=== PATIENT | female | born 1950 | race Caucasian/White ===

== ENCOUNTER 2019-09-01 11:28 | Inpatient (IN) | payer BC ==
[~2019-09-01] VITALS: Ht 162.6 cm; Wt 45.8 kg
[2019-09-01 11:40] VITALS: BP_SYST 124
[2019-09-01] MEDS ORDERED: THIAMINE HCL 100 MG in NS 50 ML IV ONE (12:00)
[2019-09-01] MEDS ORDERED: NACL 0.9% 1,000 ML IV ONE (12:00)
[2019-09-01 12:30] LABS: BASOPHILS # (AUTO) 0.1 K/uL (0.0-0.2); BASOPHILS % (AUTO) 0.9 % (0.0-2.0); EOSINOPHILS % (AUTO) 0.4 % (0.0-4.0); HEMATOCRIT 40.8 % (36-48); LYMPHOCYTES # (AUTO) 0.7 K/uL (1.0-5.5); MEAN CORPUSCULAR HEMOGLOBIN 39 pg (27-31); MEAN CORPUSCULAR HGB CONC 34 % (32-36); MEAN CORPUSCULAR VOLUME 112 fL (79.0-98.0); MONOCYTES # (AUTO) 0.9 K/uL (0.0-1.0); MONOCYTES % (AUTO) 9.7 % (1.7-9.3); NEUTROPHILS # (AUTO) 7.7 K/uL (1.8-7.7); PLATELET COUNT (AUTO) 232 K/uL (130-430); RED BLOOD CELL COUNT(AUTO) 3.63 MIL/uL (4.2-6.2); RED CELL DISTRIBUTION WIDTH 14.1 % (9.0-15.0); WHITE BLOOD COUNT (AUTO) 9.4 K/uL (4.8-10.8)
[2019-09-01] MEDS ORDERED: THIAMINE HCL 100 MG/ML VIAL ONE (12:41)
[2019-09-01 12:42] LABS: ANION GAP 12 (5-15); CALCIUM 9.4 mg/dL (8.4-11.0); CHLORIDE 97 mmol/L (98-107); CREATININE 0.84 mg/dL (0.55-1.30); GLUCOSE 80 mg/dL (70-99); POTASSIUM 4.3 mmol/L (3.5-5.1); SODIUM SERUM 134 mmol/L (136-145); UREA NITROGEN, BLOOD 6 mg/dL (8-21)
[2019-09-01 12:45] LABS: PROTHROMBIN TIME 10.4 SECS (9.5-12.5)
[2019-09-01 12:50] LABS: GFR AFRICAN AMERICAN 86 mL/min (>90)
[2019-09-01 12:57] LABS: ALANINE AMINOTRANSFERASE 37 U/L (12-78); ALBUMIN 3.8 g/dL (3.4-4.8); ALCOHOL, BLOOD < 3 mg/dL (<10); ASPARTATE AMINOTRANSFERASE 121 U/L (10-37)
[2019-09-01] MEDS ORDERED: ACETAMINOPHEN 325 MG TABLET PO ONE (13:00)
[2019-09-01 15:36] LABS: BLOOD, URINE NEGATIVE (NEGATIVE); GLUCOSE,URINE NEGATIVE (NEGATIVE); KETONES,URINE 1+ (NEGATIVE); LEUKOCYTE ESTERASE ,URINE 1+ (NEGATIVE); NITRITE, URINE NEGATIVE (NEGATIVE); PROTEIN URINE 2+ (NEGATIVE)
[2019-09-01 15:50] LABS: BARBITURATE, URINE NEGATIVE (NEG <=200); BENZODIAZEPINE, URINE NEGATIVE (NEG <=150); CANNABINOID, URINE NEGATIVE (NEG <=50); COCAINE, URINE NEGATIVE (NEG <=150); METHAMPHETAMINES SCREEN,URINE NEGATIVE (NEG <=500); OPIATE, URINE NEGATIVE (NEG <=100); PHENCYCLIDINE SCREEN,URINE NEGATIVE (NEG <=25); UR TRICYCLIC ANTIDEPRESSANTS NEGATIVE (NEG <=300); URINE AMPHETAMINE NEGATIVE (NEG <=500); URINE METHADONE NEGATIVE (NEG <=200); URINE OXYCODONE SCREEN NEGATIVE (NEG <=100); URINE PROPOXYPHENE SCREEN NEGATIVE (NEG <=300)
[2019-09-01 15:57] LABS: BILIRUBIN,URINE NEGATIVE (NEGATIVE); CLARITY/URINE HAZY (CLEAR); COLOR,URINE AMBER (YELLOW)
[2019-09-01 15:59] LABS: BACTERIA,URINE FEW /HPF (None Seen); FINE GRANULAR CASTS,URINE 0-10 /LPF (None Seen); MUCUS,URINE None Seen /LPF (None Seen); RBC,URINE 0-3 /HPF (0-3)
[2019-09-01] MEDS ORDERED: cefTRIAXone 1 GM in D5W 50 ML IV ONE (16:30)
[2019-09-01] MEDS ORDERED: cefTRIAXone 1 GM VIAL ONE (17:37)
[2019-09-01 17:53] VITALS: BP_SYST 132
[2019-09-01 18:20] VITALS: BP_SYST 132
[2019-09-02] VITALS (8 sets, daily range): BP systolic 99–128
[2019-09-02] MEDS ORDERED: ONDANSETRON HCL 4 MG/2 ML VIAL IVP PRN (02:15)
[2019-09-02] MEDS ORDERED: ALBUTEROL SULFATE 0.083% 2.5 MG/3 ML VIAL.NEB INH PRN (02:15)
[2019-09-02] MEDS ORDERED: HYDROmorphone 2 MG/ML VIAL IVP PRN (02:15)
[2019-09-02] MEDS: ACETAMINOPHEN 325 MG TABLET PO PRN (06:03)
[2019-09-02] MEDS ORDERED: SULF500T8 PO (08:40)
[2019-09-02] MEDS ORDERED: VERA180C2 PO (08:40)
[2019-09-02] MEDS: VERAPAMIL HCL 180 MG TABLET.SA PO SCH ×2 (09:38→21:00)
[2019-09-02] MEDS: sulfASALAZINE 500 MG TABLET (AZULFIDINE) PO SCH ×2 (09:38→21:00)
[2019-09-02 10:40] LABS: CALCIUM 8.5 mg/dL (8.4-11.0); CREATININE 0.82 mg/dL (0.55-1.30); POTASSIUM 3.3 mmol/L (3.5-5.1); TOTAL BILIRUBIN 0.7 mg/dL (0.0-1.0)
[2019-09-02 12:30] LABS: EOSINOPHILS % (AUTO) 0.6 % (0.0-4.0); HEMOGLOBIN 12.5 g/dL (12.0-16.0); LYMPHOCYTES # (AUTO) 0.9 K/uL (1.0-5.5)
[2019-09-02 12:32] LABS: BASOPHILS % (AUTO) 0.9 % (0.0-2.0); HEMATOCRIT 36.4 % (36-48); LYMPHOCYTES % (AUTO) 18.6 % (20.5-51.5); MEAN CORPUSCULAR HEMOGLOBIN 39 pg (27-31); MEAN CORPUSCULAR HGB CONC 34 % (32-36); MEAN CORPUSCULAR VOLUME 112 fL (79.0-98.0); MONOCYTES # (AUTO) 0.8 K/uL (0.0-1.0); MONOCYTES % (AUTO) 17.4 % (1.7-9.3); NEUTROPHILS % (AUTO) 62.5 % (40.0-70.0); PLATELET COUNT (AUTO) 162 K/uL (130-430); RED BLOOD CELL COUNT(AUTO) 3.24 MIL/uL (4.2-6.2); RED CELL DISTRIBUTION WIDTH 13.6 % (9.0-15.0); WHITE BLOOD COUNT (AUTO) 4.9 K/uL (4.8-10.8)
[2019-09-02] MEDS: cefTRIAXone 1 GM IVPB PREMIX 50 ML IV SCH (20:00)
[2019-09-03] VITALS (7 sets, daily range): BP systolic 94–133
[2019-09-03 07:44] LABS: HEMATOCRIT 35.8 % (36-48); HEMOGLOBIN 12.2 g/dL (12.0-16.0); MEAN CORPUSCULAR HEMOGLOBIN 39 pg (27-31); MEAN CORPUSCULAR HGB CONC 34 % (32-36); MEAN CORPUSCULAR VOLUME 113 fL (79.0-98.0); PLATELET COUNT (AUTO) 157 K/uL (130-430); RED BLOOD CELL COUNT(AUTO) 3.17 MIL/uL (4.2-6.2); RED CELL DISTRIBUTION WIDTH 13.7 % (9.0-15.0); WHITE BLOOD COUNT (AUTO) 4.9 K/uL (4.8-10.8)
[2019-09-03 08:04] LABS: ALBUMIN 2.9 g/dL (3.4-4.8); CREATININE 0.56 mg/dL (0.55-1.30); POTASSIUM 3.1 mmol/L (3.5-5.1); TOTAL BILIRUBIN 0.7 mg/dL (0.0-1.0)
[2019-09-03 08:20] LABS: CALCIUM 8.6 mg/dL (8.4-11.0)
[2019-09-03] MEDS: sulfASALAZINE 500 MG TABLET (AZULFIDINE) PO SCH ×2 (08:46→19:57)
[2019-09-03] MEDS: VERAPAMIL HCL 180 MG TABLET.SA PO SCH ×2 (08:46→19:57)
[2019-09-03 09:02] LABS: BASOPHILS % (MANUAL) 0 % (0-2); EOSINOPHILS % (MANUAL) 2 % (0-7); LYMPHOCYTES % (MANUAL) 27 % (20-46); MONOCYTES % (MANUAL) 15 % (0-11)
[2019-09-03] MEDS: POTASSIUM CHLORIDE 20 MEQ TAB.PRT.SR PO SCH ×2 (12:04→15:55)
[2019-09-03] MEDS: cefTRIAXone 1 GM IVPB PREMIX 50 ML IV SCH (17:30)
[2019-09-03 17:36] LABS: POTASSIUM 4.1 mmol/L (3.5-5.1)
[2019-09-04 01:38] VITALS: BP_SYST 94
[2019-09-04] MEDS: ACETAMINOPHEN 325 MG TABLET PO PRN (06:47)
[2019-09-04 07:34] VITALS: BP_SYST 107
[2019-09-04] MEDS: VERAPAMIL HCL 180 MG TABLET.SA PO SCH (08:27)
[2019-09-04] MEDS: sulfASALAZINE 500 MG TABLET (AZULFIDINE) PO SCH (08:27)
[2019-09-04 12:31] VITALS: BP_SYST 105
[2019-09-04 14:35] VITALS: BP_SYST 105
[2019-09-04] MEDS ORDERED: LEVO750T19 PO (14:40)
== END 2019-09-04 15:21 | disposition home or self-care (01) | DRG 689 ==
LOC: SED 11:28 → SMU 17:15 → STU 09-02 09:00 → SMU 09-04 10:25
PROVIDERS: ADMIT Internal Medicine Hospice and Palliative Medicine; ATTEND Internal Medicine Hospice and Palliative Medicine
DX: N39.0 Urinary tract infection, site not specified (principal); G93.41 Metabolic encephalopathy; E87.1 Hypo-osmolality and hyponatremia; I48.0 Paroxysmal atrial fibrillation; G89.29 Other chronic pain; F10.10 Alcohol abuse, uncomplicated; Z66 Do not resuscitate; Z51.5 Encounter for palliative care; Z88.8 Allergy status to other drugs, medicaments and biological substances; M45.9 Ankylosing spondylitis of unspecified sites in spine
CPT/HCPCS: 36415; 70450-TC; 71045; 80053; 80307; 81000-TC; 83735-TC; 84132-TC; 84443-TC; 84484; 85007; 85025; 85027; 85610-TC; 85730-TC; 87040-TC; 87086; 87186-TC; 93005; 93880; 96365; 99285; G0378; G0482; J0696; J3411; J7030

== ENCOUNTER 2020-03-25 13:44 | Inpatient (IN) | payer BC ==
[~2020-03-25] VITALS: Ht 149.9 cm; Wt 41.3 kg
[2020-03-25 13:44] VITALS: BP_SYST 143
[~2020-03-25 13:44] MED LIST: LEVO750T19 PO; SULF500T8 PO; VERA180C2 PO
--- NOTE | 2020-03-25 13:44 | NUR ---
Placed in room 5. Placed on monitor technician, blood pressure machine and pulse oximeter. To gown for exam. Side rails up. Report given to FLAKO Turner.
--- NOTE | 2020-03-25 13:44 | NUR ---
BETITO Reyes at bedside examining patient.
--- NOTE | 2020-03-25 13:45 | NUR ---
Rectal temp 85.3, bear hugger in place, warming techniques applied.
--- NOTE | 2020-03-25 13:45 | NUR ---
Pt BIB ambulance, found down at home. Per son, history of ETOH. Currently un-responsive. V/S stable. Rectal temp 85.3. Will continue to monitor.
--- NOTE | 2020-03-25 13:50 | NUR ---
# 20 gauge angiocath placed to RAC. Use of asceptic technique. Opsite placed over site. Blood return noted. Blood for lab drawn from site. Flushed with 10 cc of normal saline. No evidence of infiltration noted. Patient tolerated well.
--- NOTE | 2020-03-25 13:55 | NUR ---
Urine obtained via straight cath as per MD order. Pt tolerated well. Urine sent to lab
--- NOTE | 2020-03-25 13:58 | NUR ---
Blood cultures x2 collected, one set @ 1358, second set @ 1408. Sent to lab
--- NOTE | 2020-03-25 13:58 | NUR ---
EKG performed at bedside by EMT, given to MD for interpretation.
[2020-03-25] MEDS ORDERED: NACL 0.9% 1,000 ML IV ONE ×2 (14:00→19:00)
--- NOTE | 2020-03-25 14:05 | NUR ---
Radiology at bedside performing CXR
--- NOTE | 2020-03-25 14:10 | NUR ---
Patient transported to radiology via gurney for CT scan, accompanied by staff.
--- NOTE | 2020-03-25 14:15 | NUR ---
1L NS bolus infusing as ordered.
[2020-03-25 14:16] LABS: BASOPHILS % (AUTO) 0.7 % (0.0-2.0); EOSINOPHILS % (AUTO) 0.2 % (0.0-4.0); HEMATOCRIT 39.8 % (36-48); HEMOGLOBIN 13.2 g/dL (12.0-16.0); LYMPHOCYTES # (AUTO) 0.4 K/uL (1.0-5.5); LYMPHOCYTES % (AUTO) 15.1 % (20.5-51.5); MEAN CORPUSCULAR HEMOGLOBIN 36 pg (27-31); MEAN CORPUSCULAR HGB CONC 33 % (32-36); MEAN CORPUSCULAR VOLUME 109 fL (79.0-98.0); MONOCYTES # (AUTO) 0.2 K/uL (0.0-1.0); MONOCYTES % (AUTO) 8.5 % (1.7-9.3); NEUTROPHILS # (AUTO) 1.9 K/uL (1.8-7.7); NEUTROPHILS % (AUTO) 75.5 % (40.0-70.0); PLATELET COUNT (AUTO) 224 K/uL (130-430); RED BLOOD CELL COUNT(AUTO) 3.66 MIL/uL (4.2-6.2); RED CELL DISTRIBUTION WIDTH 13.3 % (9.0-15.0); WHITE BLOOD COUNT (AUTO) 2.5 K/uL (4.8-10.8)
--- NOTE | 2020-03-25 14:25 | NUR ---
Folvite given IVP and Thiamine infusing IVPB as ordered by .
[2020-03-25] MEDS ORDERED: THIAMINE HCL 100 MG in NS 50 ML IV ONE (14:30)
[2020-03-25] MEDS ORDERED: FOLIC ACID 5 MG/ML VIAL IV ONE (14:30)
[2020-03-25 14:31] LABS: PROTHROMBIN TIME 10.1 SECS (9.5-12.5)
[2020-03-25 14:36] LABS: BARBITURATE, URINE NEGATIVE (NEG <=200); BENZODIAZEPINE, URINE NEGATIVE (NEG <=150); CANNABINOID, URINE NEGATIVE (NEG <=50); COCAINE, URINE NEGATIVE (NEG <=150); METHAMPHETAMINES SCREEN,URINE NEGATIVE (NEG <=500); OPIATE, URINE NEGATIVE (NEG <=100); PHENCYCLIDINE SCREEN,URINE NEGATIVE (NEG <=25); UR TRICYCLIC ANTIDEPRESSANTS NEGATIVE (NEG <=300); URINE AMPHETAMINE NEGATIVE (NEG <=500); URINE METHADONE NEGATIVE (NEG <=200); URINE OXYCODONE SCREEN NEGATIVE (NEG <=100); URINE PROPOXYPHENE SCREEN NEGATIVE (NEG <=300)
[2020-03-25 14:38] LABS: BILIRUBIN,URINE 2+ (NEGATIVE); BLOOD, URINE 1+ (NEGATIVE); COLOR,URINE ORANGE (YELLOW); GLUCOSE,URINE NEGATIVE (NEGATIVE); KETONES,URINE 3+ (NEGATIVE); LEUKOCYTE ESTERASE ,URINE TRACE (NEGATIVE); NITRITE, URINE POSITIVE (NEGATIVE); PROTEIN URINE 1+ (NEGATIVE)
[2020-03-25 14:40] LABS: ANION GAP 16 (5-15); CALCIUM 8.9 mg/dL (8.4-11.0); CHLORIDE 97 mmol/L (98-107); CREATININE 0.86 mg/dL (0.55-1.30); GLUCOSE 130 mg/dL (70-99); POTASSIUM 3.1 mmol/L (3.5-5.1); SODIUM SERUM 138 mmol/L (136-145); UREA NITROGEN, BLOOD 40 mg/dL (8-21)
[2020-03-25 14:43] LABS: GFR AFRICAN AMERICAN 84 mL/min (>90)
[2020-03-25 14:46] LABS: CLARITY/URINE HAZY (CLEAR)
[2020-03-25] MEDS ORDERED: THIAMINE HCL 100 MG/ML VIAL ONE (14:49)
[2020-03-25 14:51] LABS: BACTERIA,URINE FEW /HPF (None Seen); MUCUS,URINE 1+ /LPF (None Seen)
[2020-03-25 14:52] LABS: ACETAMINOPHEN < 1 ug/mL (1-30); ALANINE AMINOTRANSFERASE 60 U/L (12-78); ALBUMIN 3.2 g/dL (3.4-4.8); ALCOHOL, BLOOD < 3 mg/dL (<10); ASPARTATE AMINOTRANSFERASE 106 U/L (10-37); LIPASE 337 U/L (73-393)
--- NOTE | 2020-03-25 14:59 | NUR ---
Re-check rectal temp, 85.0. Dr. Narayan notified, NS bolus paused. Warm blankets placed on patient.
--- NOTE | 2020-03-25 15:09 | NUR ---
Spoke with Pt's son, Kelvin Main to notify him of admission.
[2020-03-25] MEDS ORDERED: VANCOMYCIN HCL 1,000 MG in NS 250 ML IV ONE (15:15)
[2020-03-25] MEDS ORDERED: PIPERACILLIN/TAZO 3.375 GM in NS 50 ML IV ONE (15:15)
[2020-03-25 15:16] LABS: CKMB RELATIVE INDEX 2.4 (0.0-2.9); CREATINE KINASE MB 8.4 ng/mL (0-3.6)
--- NOTE | 2020-03-25 15:16 | NUR ---
Analisa infusing IVPB as ordered
[2020-03-25] MEDS ORDERED: PIPERACILLIN/TAZOBACTAM 3.375 GM/VIAL (ZOSYN) IV ONE ×2 (15:29→22:24)
[2020-03-25] MEDS ORDERED: VANCOMYCIN HCL 1000 MG/VIAL IV ONE (15:43)
--- NOTE | 2020-03-25 16:00 | NUR ---
Vancomyacin infusing IVPB as ordered by
[2020-03-25] MEDS ORDERED: RIZA10TA21 PO (16:02)
[2020-03-25] MEDS ORDERED: VITD2000 PO (16:02)
--- NOTE | 2020-03-25 16:02 | NUR ---
Medication reconciliation completed with information provided by Kelvin demarco over the phone. Any prior medication reconciliation on file was reviewed and corrected.
--- NOTE | 2020-03-25 16:40 | NUR ---
Patient moved to ER bed 3.
--- NOTE | 2020-03-25 17:24 | NUR ---
Re-check rectal temp, 92.9. aware
[2020-03-25] MEDS ORDERED: NS 500 ML IV ONE (17:45)
--- NOTE | 2020-03-25 17:47 | NUR ---
Pt will be admitted under the care of Dr. Mccormack. Called for a tele bed. Gaboly waiting for a bed assignement
--- NOTE | 2020-03-25 18:01 | NUR ---
Patient will be admitted to care of Dr. Mccormack. Admitted to tele unit. Will go to room 105-A. Belongings list completed. Complete and up to date summary report printed. SBAR report to be given at bedside with opportunity for questions. IV is on the lac 20g, patent and infusing well. Bedside report to be given.
--- NOTE | 2020-03-25 18:13 | NUR ---
Tirso w/ Sarah LLANOS, to provide bear hugger to Tele
--- NOTE | 2020-03-25 18:20 | NUR ---
ADMISSION NOTE Received patient from ER via shweta, received report from ISSA ARRIOLA. Patient admitted with diagnosis of SEPSIS. Patient oriented to hospital routine, call light, toileting and safety-patient verbalized understanding.
[2020-03-25 18:31] VITALS: BP_SYST 108
--- NOTE | 2020-03-25 18:43 | NUR ---
RN NOTE patient resting in bed, patient was able to state her first name to me, when asked about her last name and , she kept saying "rewind" and would laugh, that would be her response for every question I gave her, tolerating well on room air, has the bear hugger on her, no other needs addressed at this time, will endorse care to shift supervisor film processing nurse, fall/safety, aspiration, and seizure precautions in place. Addendum: 03/25/20 at 1859 by Elle Parker RN orders received for IVF bolus and scheduled.
[2020-03-25] MEDS ORDERED: NACL 0.9% 1,000 ML IV SCH (19:00)
[2020-03-25 19:45] VITALS: BP_SYST 112
--- NOTE | 2020-03-25 19:45 | NUR ---
Opening notes Pt awake, confused, but follows simple commands. Pt on Paula hugger temp 96.2 temporal, O2 98% on room air. IVF schedule administered at ordered rate R. FA 20G no s/s infiltration. Oriented to call light use/surrounding. Safety/seizure precaution in place. Bed low, locked, siderails up x3, alarm on. Call light within reach. To monitor.
[2020-03-25] MEDS: NACL 0.9% 1,000 ML IV SCH (20:51)
[2020-03-25] MEDS ORDERED: ACETAMINOPHEN 325 MG TABLET PO PRN (21:00)
[2020-03-25] MEDS ORDERED: ALBUTEROL SULFATE 0.083% 2.5 MG/3 ML VIAL.NEB INH PRN (21:00)
[2020-03-25] MEDS: PIPERACILLIN/TAZO 3.375/DEX-IS 50 ML IV SCH ×2 (21:00→23:09)
[2020-03-25] MEDS ORDERED: FOLIC ACID 1 MG, THIAMINE HCL 100 MG, MAGNESIUM SULFATE 1 GM, MVI 10 ML in NACL 0.9% 1,... IV SCH (21:15)
[2020-03-25] MEDS ORDERED: POTASSIUM CHLORIDE 20 MEQ TAB.PRT.SR PO ONE (21:15)
--- NOTE | 2020-03-25 22:25 | NUR ---
Family called Received call from pt son Kelvin.
--- NOTE | 2020-03-25 23:00 | NUR ---
Med pass Pt awake, confused. When asked what's your name and , pt replied "Autumn" "6th" repeatedly. Potassium pill administered crushed w/ applesauce, pt tolerated well, no coughing noted. IV antibiotic Zosyn given at ordered rate. Jeffery SCDs placed per MD order. Call light remains within reach. Safety precaution in place. To monitor.
[2020-03-26 00:58] VITALS: BP_SYST 110
--- NOTE | 2020-03-26 01:02 | NUR ---
Pharmacy called Called outside Pharmacy [phone] to reschedule Banana bag for 0900, no answer, left a message.
--- NOTE | 2020-03-26 01:15 | NUR ---
ROUNDS: Patient is awake at this time. Breathing is even and unlabored. No new needs at this time. Patient is comfortable at this time. Bed locked in lowest position, bed alarm on, call light with patient. Will continue to monitor. Addendum: 03/27/20 at 0350 by Regina oRper RN correct date for this entry is 03/27/20 @0115
--- NOTE | 2020-03-26 02:33 | NUR ---
Rounds Pt asleep, respirations even and unlabored. Call light within reach. Safety measures maintained. Bed low, locked, siderails up x3, alarm on. To monitor.
--- NOTE | 2020-03-26 04:30 | NUR ---
Pericare Pt incontinent of small soft stool. Pericare/skin care provided. Pt repositioned. To monitor.
[2020-03-26 04:40] VITALS: BP_SYST 108
[2020-03-26] MEDS: NACL 0.9% 1,000 ML IV SCH (05:10)
[2020-03-26] MEDS: PIPERACILLIN/TAZO 3.375/DEX-IS 50 ML IV SCH ×2 (05:17→11:13)
--- NOTE | 2020-03-26 06:05 | NUR ---
Closing notes Pt asleep, easily awakens. No s/s distress. Pt on Paula hugger. IVF infusing at ordered rate R. FA 20G no s/s infiltration. Pt has not voided. Bladder scanned done 581. Pt denies discomfort. Will page . Jeffery SCDs in place. Pt repositioned. Neurochecks done. Bed low, locked, siderails up x3, alarm on. To endorse to AM nurse.
[2020-03-26 06:18] LABS: LYMPHOCYTES # (AUTO) 0.4 K/uL (1.0-5.5); MEAN CORPUSCULAR HEMOGLOBIN 37 pg (27-31); MONOCYTES # (AUTO) 0.5 K/uL (0.0-1.0); NEUTROPHILS # (AUTO) 2.6 K/uL (1.8-7.7)
[2020-03-26 06:25] LABS: BASOPHILS % (AUTO) 0.1 % (0.0-2.0); EOSINOPHILS % (AUTO) 0.2 % (0.0-4.0); HEMATOCRIT 29.1 % (36-48); LYMPHOCYTES % (AUTO) 10.2 % (20.5-51.5); MEAN CORPUSCULAR HGB CONC 35 % (32-36); MEAN CORPUSCULAR VOLUME 108 fL (79.0-98.0); MONOCYTES % (AUTO) 14.4 % (1.7-9.3); NEUTROPHILS % (AUTO) 75.1 % (40.0-70.0); PLATELET COUNT (AUTO) 206 K/uL (130-430); RED BLOOD CELL COUNT(AUTO) 2.69 MIL/uL (4.2-6.2); RED CELL DISTRIBUTION WIDTH 13.3 % (9.0-15.0); WHITE BLOOD COUNT (AUTO) 3.5 K/uL (4.8-10.8)
[2020-03-26 06:40] LABS: CALCIUM 7.3 mg/dL (8.4-11.0); POTASSIUM 2.9 mmol/L (3.5-5.1)
[2020-03-26 06:41] LABS: CREATININE 0.87 mg/dL (0.55-1.30); TOTAL BILIRUBIN 0.8 mg/dL (0.0-1.0)
[2020-03-26 06:42] LABS: ALBUMIN 2.3 g/dL (3.4-4.8)
--- NOTE | 2020-03-26 06:50 | NUR ---
Paged Paged and spoke w/ Dr. Mccormack re K+2.9. Order for K-dur 40 x 1 received and informed MD pt is retaining urine Bladder scan done 581ml. Per MD insert sotelo catheter. Will enter orders.
[2020-03-26] MEDS ORDERED: POTASSIUM CHLORIDE 20 MEQ TAB.PRT.SR PO ONE (07:00)
--- NOTE | 2020-03-26 07:13 | NUR ---
Nutrition Update Kunal Scale 15 noted. Pt admitted for Sepsis Diet: Cardiac BMI: 18.4 kg/m2 RD to follow per nutrition care standards.
[2020-03-26] MEDS ORDERED: D5NS 1,000 ML IV SCH (07:15)
[2020-03-26] MEDS ORDERED: D5W 1,000 ML IV PRN (07:18)
--- NOTE | 2020-03-26 07:21 | NUR ---
CONSULTATION PAGED/CALLED Reason for Consultation: SEPSIS Person Who was Notified: BRADEN Consulting Physician: Food Safety Manager Specialty: Ordering Physician:
[2020-03-26] MEDS ORDERED: GLUCOSE 15 GM GEL (in 37.5 GM TUBE) PO PRN (07:30)
[2020-03-26] MEDS: D5NS 1,000 ML IV SCH ×2 (07:30→17:30)
[2020-03-26] MEDS ORDERED: KCL 40 mEq in 100 mL (PREMIX) 100 ML IV ONE (07:30)
[2020-03-26] MEDS ORDERED: DEXTROSE 50% JECT 50 ML DISP.SYRIN IVP PRN (07:30)
--- NOTE | 2020-03-26 07:30 | NUR ---
opening note patient resting in bed, fingerstick blood sugar check was 58, Dr Milner was at the nurses' and I told her about the results, she put in new orders, new orders for hypoglycemic protocol, educated patient on medication use and side effects, patient is nonverbal at this time, opens eyes spontaneously and smiles then continues to closing her eyes, tolerated well, tolerating well on room air, reji hugger still on, IVF running and tolerating well, no other needs addressed at this time, bed in lowest position, bed alarm on, side rails up, call light within reach, seizure pads on, patient is pending a swallow evaluation, fall/safety and aspiration precautions in place.
[2020-03-26] MEDS: FOLIC ACID 1 MG, MVI 10 ML in NACL 0.9% 1,000 ML IV SCH (07:47)
[2020-03-26] MEDS: THIAMINE HCL 100 MG, MAGNESIUM SULFATE 1 GM in NS 100 ML IV SCH (07:48)
[2020-03-26 08:00] VITALS: BP_SYST 104
[2020-03-26] MEDS ORDERED: POTASSIUM CHLORIDE 40 MEQ in NS 250 ML IV ONE (08:00)
[2020-03-26] MEDS: sulfASALAZINE 500 MG TABLET (AZULFIDINE) PO SCH ×2 (08:08→21:44)
--- NOTE | 2020-03-26 09:00 | NUR ---
MILLS CATH: # 16 FR Mills catheter with 10 cc bulb inserted with use of sterile technique. Bulb inflated with 10 cc sterile water. Immediate return of 200 cc urine noted. Bedside drainage bag placed below level of bladder. Urine sample collected and sent to lab at 0908. Pt tolerated procedure well.
--- NOTE | 2020-03-26 09:11 | NUR ---
left message for Ofelia regarding swallow evaluation. [phone]
[2020-03-26 09:27] LABS: BILIRUBIN,URINE 2+ (NEGATIVE); CLARITY/URINE CLEAR (CLEAR); COLOR,URINE YELLOW (YELLOW); GLUCOSE,URINE NEGATIVE (NEGATIVE); KETONES,URINE 2+ (NEGATIVE); LEUKOCYTE ESTERASE ,URINE NEGATIVE (NEGATIVE); NITRITE, URINE NEGATIVE (NEGATIVE); PROTEIN URINE TRACE (NEGATIVE)
[2020-03-26 09:28] LABS: BLOOD, URINE TRACE (NEGATIVE)
[2020-03-26 09:33] LABS: BACTERIA,URINE FEW /HPF (None Seen); HYALINE CASTS, URINE 0-10 /LPF (None Seen); WBC,URINE 0-3 /HPF (0-3)
--- NOTE | 2020-03-26 10:13 | NUR ---
patient resting in bed eyes closed breathing easy and nonlabored, tolerating well on room air, banana bag running and patient tolerating well, no needs addressed at this time, fall/safety, seizure, and aspiration precautions in place.
[2020-03-26] MEDS ORDERED: MAGNESIUM SULFATE 50 ML IV ONE (11:00)
--- NOTE | 2020-03-26 11:27 | NUR ---
CONSULTATION PAGED/CALLED Reason for Consultation: PATIENT FOUND ON THE legal practice manager Who was Notified: RAUL Consulting Physician: Rodbuster Specialty: Ordering Physician:
--- NOTE | 2020-03-26 11:31 | NUR ---
CONSULTATION PAGED/CALLED Reason for Consultation: PATIENT FOUND ON THE carriage operator Who was Notified: DAE Consulting Physician: Mixing Machine Feeder Specialty: Ordering Physician:
--- NOTE | 2020-03-26 11:43 | NUR ---
SS NOTES/ATTEMPT: SPANISH PROFESSOR attempted to meet with patient for ETOH. Pt appears to be confused with flat affect. Pt is also not responding to questions and nods to everything asked. SPANISH PROFESSOR will attempt again.
--- NOTE | 2020-03-26 12:10 | NUR ---
rounds patient is resting in bed, finished getting her 2D echo, patient has IV medications running and is tolerating well, no signs of distress at this time, tolerating well on room air, no needs addressed at this time, fall/safety, seizure, and aspiration precautions in place.
[2020-03-26 12:21] VITALS: BP_SYST 110
--- NOTE | 2020-03-26 12:41 | NUR ---
Dietitian Recommendations *Awaiting ST eval for diet modification. *Recommend: adding ONS once diet is ordered to better meet nutrient needs. Please see Nutritional Assessment for details. RAS, ALINA
--- NOTE | 2020-03-26 14:55 | NUR ---
blood sugar check done per order, patient tolerated well, blood sugar was 80, no other needs at this time, banana bag running, fall/safety, aspiration, and seizure precautions in place.
[2020-03-26] MEDS ORDERED: VANCOMYCIN HCL 500 MG in NS 100 ML IV SCH (16:00)
[2020-03-26 16:10] VITALS: BP_SYST 113
--- NOTE | 2020-03-26 16:36 | NUR ---
swallow evaluation ST in room for evaluation.
--- NOTE | 2020-03-26 16:53 | NUR ---
S.T. SWALLOW EVAL SWALLOW EVAL COMPLETED. PT PRESENTS W/ MOD ORAL AND ML PHARYNGEAL DYSPHAGIA W/ DELAYED BOLUS TRANSFER, PROLONGED MASTICATION, AND DELAYED SWALLOW. NO S/S OF ASPIRATION. REC: MECH SOFT FINELY CHOPPED DIET. THIN LIQUIDS OK. NURSE RYAN NOTIFIED.
--- NOTE | 2020-03-26 18:36 | NUR ---
closing note patient resting in bed, fingerstick blood sugar check was 105, tolerating well on room air, reji hugger still on, IVF running and tolerating well, no other needs addressed at this time, bed in lowest position, bed alarm on, side rails up, call light within reach, seizure pads on, patient passed swallow evaluation, fall/safety and aspiration precautions in place. sotelo catheter in place, will endorse care to shift superintendent caustic cresylate nurse. Addendum: 03/26/20 at 1837 by Elle Parker RN no longer on reji graves
--- NOTE | 2020-03-26 19:15 | NUR ---
OPENING NOTE: Patient awake at this time, AOx2. No s/s of acute distress noted. Breathing is even and unlabored. IVF well without signs of infection or infiltration. Sparks catheter patent, attached, and draining by gravity. SCDs are attached and operating. Seizure pads attached. Bed locked in lowest position, bed alarm on, call light with patient. Patient educated on use and importance of call light. Patient unable to verbalize understanding and demonstrate proper use due to confusion. Will continue to re-educate and re-orient throughout the shift. Will continue to monitor.
[2020-03-26 20:00] VITALS: BP_SYST 119
--- NOTE | 2020-03-26 21:00 | NUR ---
SPOKE WITH DR. HESTER: Patient had an episode of tachycardia sustaining the 120's for 10 minutes. Patient without s/s of acute distress noted. Breathing even and unlabored. MD Hester paged and aware. No new orders given at this time. will continue to monitor.
--- NOTE | 2020-03-26 21:15 | NUR ---
SPOKE WITH PATIENT'S SON: Spoke on the phone with the patient's son Kelvin at this time. All questions answered, no futher questions at this time.
--- NOTE | 2020-03-26 23:25 | NUR ---
ROUNDS: Patient is asleep at this time. Breathing is even and unlabored. Bed locked in lowest position, bed alarm on, call light with patient. Will continue to monitor.
[2020-03-27 00:34] VITALS: BP_SYST 104
--- NOTE | 2020-03-27 01:15 | NUR ---
ROUNDS: Patient is awake at this time. Breathing is even and unlabored. No new needs at this time. Patient is comfortable at this time. Bed locked in lowest position, bed alarm on, call light with patient. Will continue to monitor.
[2020-03-27] MEDS ORDERED: DILTIAZEM HCL 25 MG/5 ML VIAL IVP ONE (03:00)
--- NOTE | 2020-03-27 03:05 | NUR ---
SPOKE WITH DR. CASAS: Patient had an episode of Junctional Tachycardia sustaining 120-130 for 15 minutes. Patient without s/s of acute distress noted. Breathing is even and unlabored. Dr. Casas paged, new orders given. Will carry out new orders accordingly.
[2020-03-27] MEDS: D5NS 1,000 ML IV SCH ×3 (03:30→23:52)
[2020-03-27 06:18] LABS: BASOPHILS % (AUTO) 0.4 % (0.0-2.0); EOSINOPHILS % (AUTO) 0.4 % (0.0-4.0); HEMATOCRIT 26.9 % (36-48); HEMOGLOBIN 9.1 g/dL (12.0-16.0); LYMPHOCYTES # (AUTO) 0.7 K/uL (1.0-5.5); LYMPHOCYTES % (AUTO) 15.3 % (20.5-51.5); MEAN CORPUSCULAR HEMOGLOBIN 37 pg (27-31); MEAN CORPUSCULAR HGB CONC 34 % (32-36); MEAN CORPUSCULAR VOLUME 108 fL (79.0-98.0); MONOCYTES # (AUTO) 0.6 K/uL (0.0-1.0); NEUTROPHILS # (AUTO) 3.5 K/uL (1.8-7.7); NEUTROPHILS % (AUTO) 71.9 % (40.0-70.0); PLATELET COUNT (AUTO) 197 K/uL (130-430); RED BLOOD CELL COUNT(AUTO) 2.49 MIL/uL (4.2-6.2); RED CELL DISTRIBUTION WIDTH 13.4 % (9.0-15.0); WHITE BLOOD COUNT (AUTO) 4.9 K/uL (4.8-10.8)
--- NOTE | 2020-03-27 06:29 | NUR ---
CLOSING NOTE: Patient awake at this time, AOx2. No s/s of acute distress noted. Breathing is even and unlabored. IVF well without signs of infection or infiltration. Sparks catheter patent, attached, and draining by gravity. SCDs are attached and operating. Seizure pads attached. All fall/safety precautions maintained throughout the shift. All needs met throughout the shift. Will continue to monitor until endorsement of care to dayshift nurse.
[2020-03-27 06:56] LABS: ALBUMIN 2.2 g/dL (3.4-4.8); CALCIUM 7.7 mg/dL (8.4-11.0); CREATININE 0.6 mg/dL (0.55-1.30); TOTAL BILIRUBIN 0.4 mg/dL (0.0-1.0)
[2020-03-27 06:59] LABS: POTASSIUM 2.7 mmol/L (3.5-5.1)
--- NOTE | 2020-03-27 06:59 | NUR ---
CRITICAL LAB: Laboratory called with critical lab value 2.7 Potassium will page for new orders.
--- NOTE | 2020-03-27 07:04 | NUR ---
MD LIDA WINCHESTER CALLED AT SPOKE WITH DR.JANDIAL WILSON RAJNISH WAREHOUSE ATTENDANT.
--- NOTE | 2020-03-27 07:09 | NUR ---
SPOKE WITH DR. HESTER: DR. HESTER AWARE OF PATIENT 2.7 K+ level, new orders given. Will carry out accordingly and endorse to dayshift nurse.
[2020-03-27] MEDS ORDERED: POTASSIUM CHLORIDE 20 MEQ TAB.PRT.SR PO ONE ×2 (07:15→11:30)
[2020-03-27 08:00] VITALS: BP_SYST 106
[2020-03-27] MEDS: THIAMINE HCL 100 MG, MAGNESIUM SULFATE 1 GM in NS 100 ML IV SCH (08:42)
[2020-03-27] MEDS: FOLIC ACID 1 MG, MVI 10 ML in NACL 0.9% 1,000 ML IV SCH (08:43)
[2020-03-27] MEDS: sulfASALAZINE 500 MG TABLET (AZULFIDINE) PO SCH ×2 (08:44→21:41)
[2020-03-27] MEDS ORDERED: chlordiazePOXIDE HCL 25 MG CAPSULE PO ONE (10:45)
[2020-03-27] MEDS ORDERED: LORazepam 2 MG/ML VIAL IVP PRN (10:45)
[2020-03-27] MEDS ORDERED: PIPERACILLIN/TAZO 3.375/DEX-IS 50 ML IV ONE (11:00)
[2020-03-27 12:00] VITALS: BP_SYST 112
[2020-03-27] MEDS: cefTRIAXone 1 GM in D5W 50 ML IV SCH (12:24)
[2020-03-27] MEDS: chlordiazePOXIDE HCL 25 MG CAPSULE PO SCH ×2 (15:20→21:41)
[2020-03-27 16:08] VITALS: BP_SYST 118
[2020-03-27] MEDS ORDERED: PIPERACILLIN/TAZO 3.375/DEX-IS 50 ML IV SCH (18:00)
--- NOTE | 2020-03-27 18:22 | NUR ---
alert, disoriented, not agitated, LIBRIUM 25mg po given x 2 during the shift, appeared calm. NO tremors noted, appetite good for breakfast, Lunch nothing " same food every day" woke up after 3 hrs nap, now eating dinner, 100%. son Kelvin called, patient's condition updated. got replaced with 40 meq KDur, K+ this am 2.7 patient is med surg now.
--- NOTE | 2020-03-27 19:30 | NUR ---
AWAK, ALERT. CONFUSED AT TIMES. ON ROOM AIR. BREATH SOUNDS ESSENTIALLY CLEAR. BOWEL SOUNDS (+). PULSES PALPABLE. SKIN W/D. COLOR SATISFACTORY. HOB UP TO COMFORT. SIDE RAILS UP X3. SIDE RAILS PADDED. MILLS CATH PATENT DRAINING CLEAR BREANN URINE TO GRAVITY. ACCU-CHECK 115, NO INSULIN COVERAGE. AMBER SCD'S IN PLACE.
--- NOTE | 2020-03-27 23:00 | NUR ---
BOUTS OF CONFUSION. OCCASIONALLY ATTEMPTS TO GET OUT OF BED. ACCU-CHEK 102, NO INSULIN COV.
[2020-03-28 00:29] VITALS: BP_SYST 120
--- NOTE | 2020-03-28 03:00 | NUR ---
ACCU-CHEK 104. NO INSULIN COVERAGE. SLEPT FOR LONG PERIODS OF TIME.
--- NOTE | 2020-03-28 06:00 | NUR ---
ABLE TO REPOSITION SELF. SLEPT WELL FOR MOST OF NOC. REMAINS IN GUARDED CONDITION.
[2020-03-28 06:24] LABS: ALBUMIN 1.9 g/dL (3.4-4.8); CALCIUM 7.4 mg/dL (8.4-11.0); CREATININE 0.5 mg/dL (0.55-1.30); TOTAL BILIRUBIN 0.4 mg/dL (0.0-1.0)
[2020-03-28 06:36] LABS: POTASSIUM 2.8 mmol/L (3.5-5.1)
[2020-03-28 06:43] LABS: HEMATOCRIT 24.9 % (36-48); HEMOGLOBIN 8.3 g/dL (12.0-16.0); MEAN CORPUSCULAR HEMOGLOBIN 37 pg (27-31); MEAN CORPUSCULAR HGB CONC 34 % (32-36); MEAN CORPUSCULAR VOLUME 110 fL (79.0-98.0); PLATELET COUNT (AUTO) 184 K/uL (130-430); RED BLOOD CELL COUNT(AUTO) 2.26 MIL/uL (4.2-6.2); RED CELL DISTRIBUTION WIDTH 13.4 % (9.0-15.0); WHITE BLOOD COUNT (AUTO) 5.2 K/uL (4.8-10.8)
--- NOTE | 2020-03-28 06:44 | NUR ---
ATTENDING MD DR HESTER WAS CALLED, RE: CRITICAL K LEVEL. SPOKE TO DENICE.
--- NOTE | 2020-03-28 07:00 | NUR ---
NO RETURN CALL YET FROM DR HESTER. POTASSIUM LEVEL 2.8 ENDORSED TO IN-COMING AM SHIFT.
--- NOTE | 2020-03-28 07:45 | NUR ---
Opening note patient resting in bed, a/ox1, denies pain, reoriented to place, time and event, assessment complete, IV line is patent and infusing well, Sparks Catheter in place draining to gravity, educated the patient computational sciences professor light system and plan of care, she verbalized understanding, bed in lowest position, three side rails up, bed alarm on, bed close to nursing station, fall, aspiration and seizure precautions in place.
[2020-03-28] MEDS: THIAMINE HCL 100 MG, MAGNESIUM SULFATE 1 GM in NS 100 ML IV SCH (08:18)
[2020-03-28] MEDS: FOLIC ACID 1 MG, MVI 10 ML in NACL 0.9% 1,000 ML IV SCH (08:18)
[2020-03-28] MEDS: sulfASALAZINE 500 MG TABLET (AZULFIDINE) PO SCH ×2 (08:19→20:18)
[2020-03-28] MEDS: chlordiazePOXIDE HCL 25 MG CAPSULE PO SCH ×3 (08:19→20:18)
[2020-03-28] MEDS: D5NS 1,000 ML IV SCH ×2 (08:23→19:30)
--- NOTE | 2020-03-28 08:35 | NUR ---
Medication patient resting in bed, awake, denies pain, administered medication per MD orders, crushed medication and placed in pudding, patient tolerated well, IV line is patent and infusing well, orders received for K rider, will follow up, no other needs at this time, bed in lowest position, three side rails up, bed alarm on, bed close to nursing station, fall, aspiration and seizure precautions in place, continuing to monitor.
[2020-03-28] MEDS ORDERED: POTASSIUM CHLORIDE 40 MEQ in NS 250 ML IV ONE (09:00)
[2020-03-28 09:15] VITALS: BP_SYST 115
[2020-03-28 09:21] LABS: LYMPHOCYTES % (MANUAL) 35 % (20-46)
[2020-03-28 09:22] LABS: BASOPHILS % (MANUAL) 0 % (0-2); EOSINOPHILS % (MANUAL) 0 % (0-7); MONOCYTES % (MANUAL) 15 % (0-11)
[2020-03-28] MEDS: cefTRIAXone 1 GM in D5W 50 ML IV SCH (11:05)
--- NOTE | 2020-03-28 11:05 | NUR ---
RN rounds/Medication patient resting in bed, awake, denies pain, IV Rocephin hung and infusing well, IV line is patent, no s/s of infiltration, continuing to monitor the patient, will follow up with K rider as well, no other needs at this time, bed in lowest position, three side rails up, call light placed within reach, fall, aspiration, and seizure precautions in place.
--- NOTE | 2020-03-28 11:38 | NUR ---
Called pharmacy inquired if banana bag and K-rider can infuse together, per Chika Pharmacist, run the K-rider separately, will follow up.
--- NOTE | 2020-03-28 11:42 | NUR ---
Physical therapy at bedside at this time, patient tolerating well, attempting to ambulate with walker.
[2020-03-28 11:55] VITALS: BP_SYST 117
[2020-03-28 12:07] VITALS: BP_SYST 117
--- NOTE | 2020-03-28 12:07 | NUR ---
Tanisha claire and infusing well, IV line is patent, no s/s of infiltration, continuing to monitor.
--- NOTE | 2020-03-28 12:27 | NUR ---
Perforator Typist spoke with Marva from HCP, gave updates on patient care, she will reach out to the family with updates and also inquire if they are agreeable for patient transfer to SNF. Marva [phone]
--- NOTE | 2020-03-28 13:40 | NUR ---
RN rounds patient resting in bed, awake, repositioned patient, IV line is patent and infusing well, no other needs at this time, continuing to monitor, bed in lowest position, three side rails up, bed alarm on, bed close to nursing station, fall, aspiration and seizure precautions in place, call light placed within reach.
--- NOTE | 2020-03-28 13:59 | NUR ---
House Wirer: ACADEMIC ADMINISTRATOR received a referral to speak to pt. for alcoholism. ACADEMIC ADMINISTRATOR called pt.s room at [phone]. Pt. spoke in garbled speech and she was not making sense. Pt. confirmed that she had a son, Kelvin (he is listed on the face sheet). ACADEMIC ADMINISTRATOR will try giving him a call to gather info re. on pt. and her alcohol dependency. ACADEMIC ADMINISTRATOR called son, Kelvin Colon, he was able to confirm the demographics on the facesheet. As per son, Kelvin, pt. drinks a liter of wine ( a big jug) daily. She lives alone and she gets her alcohol from people she doesn't really know. He stated pt. will stockpile big bottles or get people to buy for her. She even drives at times. Pt. does live at home alone. The short term plan is to get her into assisted living and the termite control service representative plan is to sell pts. house and use the income form the sale for [facility] care. Son stated pt. cant live at home alone anymore. She is unable to pay bills,cannot manage her money, writes checks to people she should not and the house is in bad shape. She is resistance to intervention and does not even want hired assistance. Son stated pt. gets hostile with helpers. When asked about mental health Dx. son Kelvin stated pt. had been Dx. with Bipolar over 5 years ago and with Depression more than 5 years ago. He stated she is good about taking her irregular heart medication, but does not take her psyc. meds. She has been to [facility], but did not follow through with going to a residential rehab. When asked about any times when pt. was suicidal, son stated pt. had passively stated she wanted to . ACADEMIC ADMINISTRATOR will be available if needed.
[2020-03-28 15:25] VITALS: BP_SYST 120
--- NOTE | 2020-03-28 16:04 | NUR ---
Medication/Rounds patient resting in bed, awake, denies pain, administered medication per MD orders, crushed medication and placed in pudding, patient tolerated well, IV line is patent and infusing well, no other needs at this time, bed in lowest position, three side rails up, bed alarm on, bed close to nursing station, fall, aspiration and seizure precautions in place, continuing to monitor.
--- NOTE | 2020-03-28 18:42 | NUR ---
Closing note patient resting in bed, awake, set up patient to eat dinner, encouraging patient to eat by herself, aspiration precautions in place, banana bag resumed, all needs met, will endorse report to NOC shift nurse, bed in lowest position, three side rails up, bed close to nursing station, call light placed within reach, fall, aspiration and seizure precautions in place.
[2020-03-28 19:35] VITALS: BP_SYST 104
--- NOTE | 2020-03-28 19:35 | NUR ---
INITIAL NOTES PATIENT IS LAYING IN BED AND WATCHING TV. PATIENT IS STABLE. NO S/S OF RESPIRATORY DISTRESS NOTED. CALL LIGHT IN REACH. PATIENT UNSUCCESSFULLY DEMONSTRATES USAGE OF CALL LIGHT. BED IS LOCKED, ALARMED, AND AT THE LOWEST POSITION. FALL, SAFETY, ASPIRATION, AND RESPIRATORY PRECAUTIONS WILL BE IN PLACE THROUGHOUT THE SHIFT.
--- NOTE | 2020-03-28 21:35 | NUR ---
PATIENT IS STABLE AND LAYING IN BED. NO S/S OF RESPIRATORY DISTRESS NOTED. CALL LIGHT IN REACH.
--- NOTE | 2020-03-28 23:35 | NUR ---
PATIENT IS STABLE AN LAYING IN BED. NO S/S OF RESPIRATORY DISTRESS NOTED. CALL LIGHT IN REACH.
[2020-03-29 00:06] VITALS: BP_SYST 106
--- NOTE | 2020-03-29 04:14 | NUR ---
PATIENT IS STABLE AND SLEEPING IN BED. NO S/S OF RESPIRATORY DISTRESS NOTED. CALL LIGHT IN REACH.
[2020-03-29] MEDS: D5NS 1,000 ML IV SCH ×2 (05:30→14:16)
--- NOTE | 2020-03-29 07:35 | NUR ---
CLOSING NOTES PATIENT IS STABLE AND LAYING IN BED. NO S/S OF RESPIRATORY DISTRESS NOTED. CALL LIGHT IN REACH. BED IS LOCKED AND AT THE LOWEST POSITION. FALL, SAFETY, SEIZURE, ASPIRATION, AND RESPIRATORY PRECAUTIONS HAS BEEN IN PLACE THROUGHOUT THE SHIFT. PLAN OF CARE ENDORSED TO AM NURSE BY BEDSIDE.
[2020-03-29 08:00] VITALS: BP_SYST 116
--- NOTE | 2020-03-29 08:00 | NUR ---
Opening Note Pt alert and awake A/O x 2 eating breakfast. No signs of pain or respiratory distress. Seizure pads in place. Fovite @ 42cc/hr. Sparks with yellow urine. Bed locked and in lowest position with call light in hand.
[2020-03-29] MEDS: THIAMINE HCL 100 MG, MAGNESIUM SULFATE 1 GM in NS 100 ML IV SCH (09:29)
[2020-03-29] MEDS: sulfASALAZINE 500 MG TABLET (AZULFIDINE) PO SCH ×2 (09:29→20:48)
[2020-03-29] MEDS: chlordiazePOXIDE HCL 25 MG CAPSULE PO SCH ×3 (09:29→20:48)
[2020-03-29] MEDS: FOLIC ACID 1 MG, MVI 10 ML in NACL 0.9% 1,000 ML IV SCH (09:30)
[2020-03-29 10:15] VITALS: BP_SYST 106
[2020-03-29] MEDS: cefTRIAXone 1 GM in D5W 50 ML IV SCH (11:12)
[2020-03-29 12:22] LABS: BASOPHILS % (AUTO) 0.8 % (0.0-2.0); EOSINOPHILS # (AUTO) 0.1 K/uL (0.0-0.4); EOSINOPHILS % (AUTO) 1.2 % (0.0-4.0); HEMATOCRIT 27.5 % (36-48); HEMOGLOBIN 9.2 g/dL (12.0-16.0); LYMPHOCYTES # (AUTO) 1.2 K/uL (1.0-5.5); LYMPHOCYTES % (AUTO) 23.8 % (20.5-51.5); MEAN CORPUSCULAR HEMOGLOBIN 36 pg (27-31); MEAN CORPUSCULAR HGB CONC 34 % (32-36); MEAN CORPUSCULAR VOLUME 108 fL (79.0-98.0); MONOCYTES # (AUTO) 0.7 K/uL (0.0-1.0); MONOCYTES % (AUTO) 13.4 % (1.7-9.3); PLATELET COUNT (AUTO) 204 K/uL (130-430); RED BLOOD CELL COUNT(AUTO) 2.54 MIL/uL (4.2-6.2); RED CELL DISTRIBUTION WIDTH 13.5 % (9.0-15.0)
[2020-03-29 12:31] VITALS: BP_SYST 97
[2020-03-29 12:38] LABS: CALCIUM 8.1 mg/dL (8.4-11.0); CREATININE 0.52 mg/dL (0.55-1.30); TOTAL BILIRUBIN 0.3 mg/dL (0.0-1.0)
[2020-03-29 12:46] LABS: POTASSIUM 2.9 mmol/L (3.5-5.1)
--- NOTE | 2020-03-29 12:49 | NUR ---
PAGED PAGED COURT BATES AT [phone] SPOKE WITH DOMINGA.
--- NOTE | 2020-03-29 13:00 | NUR ---
MD CALLBACK Dr Riggs called. Received orders for Kcl 40 mEq with lidocaine. Read back and confirmed.
[2020-03-29 13:03] LABS: NEUTROPHILS % (AUTO) 60.8 % (40.0-70.0)
[2020-03-29] MEDS ORDERED: KCL 40 mEq in 100 mL (PREMIX) 100 ML IV ONE (13:15)
[2020-03-29] MEDS ORDERED: POTASSIUM CHLORIDE 40 MEQ, LIDOCAINE JECT 2% PF 100 MG 50 MG in NS 250 ML IV ONE (14:00)
--- NOTE | 2020-03-29 16:00 | NUR ---
Rounds Pt lethargic and sleeping. Arouses to verbal and tactile stimuli. No signs of pain or discomfort.
--- NOTE | 2020-03-29 16:31 | NUR ---
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 PMH: HTN, Liver Disease, ETOH abuse. 03/25 CT head/brain: no acute abnormalities; noted atherosclerotic vascular changes. Subjective Information Pt continues to not eat well. Pt appeared underweight and is not yet meeting adequate nutrition. Will await ST rec. Nutrition education is not appropriate. Current Diet Order/Nutrition Support Cardiac diet, Mech soft, finely chopped x 2 day Patient/Significant Other Unable To Verbalize Education Provided Not Indicated Pertinent Medications vancomycin, thiamine, folic acid, MVI, piperacillin/tazobactam Pertinent Labs 03/29 Na K 2.9L, BG 95, BUN 7L, CRE 0.52L, GFR 150, AST 90H, COVID pending 03/28 Height (Feet) 4 feet Height (Inches) 11.00 inches Weight (Pounds) 91 pounds Weight (Calculated Kilograms) 41.659478 kilograms Patient Weight 41.277 kg Body Mass Index 18.38 kg/m2 %IBW [employer] Mdl/Adjusted Body Weight 95#/ 43 kg Recent Weight Change Yes - 2-3# wt loss in 3 months per EMR Weight Status Underweight Gastrointestinal Symptoms None Last BM March 26, 2020 Food Allergies unable to obtain Usual Diet At Home regular per EMR Skin Integrity Comment: Kunal scale: 15, per RN notes, no PIs. Pt w/ ecchymosis to DON. NO edema noted. Current % PO Negligible <25% Estimated Energy Expenditure (kcals/day) 8438-7115 kcla/day (30-35 kcal/kg CBW for sepsis) Estimated Protein Required (g/day) 65-86gm/day (1.5-2gm/kg IBW for sepsis) Estimated Fluid Required (l/day) 1.2-1.4 L/day (1ml/calorie for maintenance) Problem/Etiology/Signs/Symptoms Increased nutrient needs r/t metabolic demands AEB estimated calories and protein for sepsis. Underweight r/t poor nutrition quality of life AEB BMI 18.4 kg/m2 and possible displacement of wholesome nutrition 2/2 ETOH abuse. Expected Outcomes/Goals Monitor appetite and PO intake w/ goal of pt meeting at least 75% of estimated nutritional needs, labs trending WNL, normal GI function, skin integrity/wt maintenance. Dietitian Recommendations *Awaiting ST rodriguez for diet modification. *Recommend: adding ONS once diet is ordered to better meet nutrient needs. Follow Up High Risk: F/U in 2-3days
[2020-03-29 17:22] VITALS: BP_SYST 126
--- NOTE | 2020-03-29 18:26 | NUR ---
Closing Note Pt alert and awake A/O x 2 eating dinner. No signs of pain or respiratory distress. Seizure pads in place. Fovite @ 42cc/hr. Sparks with yellow urine. Bed locked and in lowest position with call light in hand.
--- NOTE | 2020-03-29 19:30 | NUR ---
initial notes: pt is in bed. alert, awake, oriented x 2. no pain, no sob, stable. iv banana bag infusing to right forearm at 42cc/hr-intact and patent. pt has sotelo catheter draining to yellow urine. bilateral leg scd. explain plan of care and safety. needs attended, call light in reach. bed lock on, safety precaution in place. will follow up.
[2020-03-29 20:32] VITALS: BP_SYST 112
--- NOTE | 2020-03-29 22:00 | NUR ---
pt is resting, no sign of pain, no sob. not distress,stable. ivf infusing well. safety precaution in place.call light in reach. will follow-up.
--- NOTE | 2020-03-30 | NUR ---
sleeping, comfortable. no pain, no sob, stable. call light in reach. safety precaution in place. will follow-up.
--- NOTE | 2020-03-30 00:20 | NUR ---
sleeping, no sob, no pain. stable. safety precaution in place.
[2020-03-30 00:57] VITALS: BP_SYST 103
[2020-03-30] MEDS: D5NS 1,000 ML IV SCH ×3 (01:30→21:30)
--- NOTE | 2020-03-30 02:00 | NUR ---
sleeping, comfortable. no pain, no sob, stable. call light in reach. safety precaution in place. will follow-up.
--- NOTE | 2020-03-30 04:00 | NUR ---
pt is awake, alert, confused. no sob, no pain. stable. safety precaution in place. call light in reach. will follow-up.
--- NOTE | 2020-03-30 05:30 | NUR ---
pt is awake, alert, confused. no sob, no pain. stable. clean pt and reposition. safety precaution in place. call light in reach. will follow-up.
[2020-03-30 06:39] LABS: BASOPHILS % (AUTO) 0.8 % (0.0-2.0); EOSINOPHILS # (AUTO) 0.1 K/uL (0.0-0.4); EOSINOPHILS % (AUTO) 2.1 % (0.0-4.0); HEMATOCRIT 28.3 % (36-48); HEMOGLOBIN 9.5 g/dL (12.0-16.0); LYMPHOCYTES # (AUTO) 1.4 K/uL (1.0-5.5); LYMPHOCYTES % (AUTO) 30.3 % (20.5-51.5); MEAN CORPUSCULAR HEMOGLOBIN 37 pg (27-31); MEAN CORPUSCULAR HGB CONC 34 % (32-36); MEAN CORPUSCULAR VOLUME 108 fL (79.0-98.0); MONOCYTES # (AUTO) 0.8 K/uL (0.0-1.0); MONOCYTES % (AUTO) 17.4 % (1.7-9.3); NEUTROPHILS # (AUTO) 2.3 K/uL (1.8-7.7); PLATELET COUNT (AUTO) 192 K/uL (130-430); RED BLOOD CELL COUNT(AUTO) 2.61 MIL/uL (4.2-6.2); RED CELL DISTRIBUTION WIDTH 13.1 % (9.0-15.0); WHITE BLOOD COUNT (AUTO) 4.6 K/uL (4.8-10.8)
[2020-03-30 06:47] LABS: NEUTROPHILS % (AUTO) 49.4 % (40.0-70.0)
--- NOTE | 2020-03-30 06:58 | NUR ---
closing: pt is awake, alert, confused. no sob, no pain. stable.needs attended the whole shift. safety precaution in place. call light in reach. will give sbar report to am rn.
[2020-03-30 07:33] LABS: C-REACTIVE PROTEIN QUANT 3.5 mg/dL (0-0.5); CALCIUM 7.9 mg/dL (8.4-11.0); CREATININE 0.48 mg/dL (0.55-1.30); POTASSIUM 3.3 mmol/L (3.5-5.1)
--- NOTE | 2020-03-30 07:40 | NUR ---
INITIAL NOTE RECEIVED PT IN BED, NO S/S OF DISTRESS OR SOB NOTED, PT HAS NO C/O PAIN AT THIS TIME, PT IN STABLE CONDITION. PT AAOX1, VERBAL BUT CONFUSED, PROVIDED PT WITH REALITY ORIENTATION. IV CATHETER PATENT, NO SIGNS OF INFECTION OR INFILTRATION NOTES, RUNNING IV FLUIDS ORDERED. BED AT LOWEST POSITION, CALL LIGHT WITHIN REACH, WILL CONTINUE TO MONITOR PT FOR ANY CHANGES, FALL, SAFETY AND SEIZURE PRECAUTIONS IN PLACE.
[2020-03-30] MEDS: THIAMINE HCL 100 MG, MAGNESIUM SULFATE 1 GM in NS 100 ML IV SCH (08:17)
[2020-03-30] MEDS: FOLIC ACID 1 MG, MVI 10 ML in NACL 0.9% 1,000 ML IV SCH (08:17)
[2020-03-30] MEDS: chlordiazePOXIDE HCL 25 MG CAPSULE PO SCH ×4 (08:17→21:34)
[2020-03-30] MEDS: sulfASALAZINE 500 MG TABLET (AZULFIDINE) PO SCH ×2 (08:25→21:34)
[2020-03-30 08:30] VITALS: BP_SYST 91
[2020-03-30 09:23] LABS: ERYTHROCYTE SEDIMENTATION RATE 18 MM/HR (0-20)
--- NOTE | 2020-03-30 10:20 | NUR ---
ROUNDS PT IN BED, NO S/S OF DISTRESS OR SOB NOTED, PT HAS NO C/O PAIN AT THIS TIME, PT IN STABLE CONDITION. PT RESTING COMFORTABLY, WILL CONTINUE TO MONITOR PT FOR ANY CHANGES.
[2020-03-30] MEDS ORDERED: POTASSIUM CHLORIDE 20 MEQ TAB.PRT.SR PO ONE (11:15)
[2020-03-30] MEDS: cefTRIAXone 1 GM in D5W 50 ML IV SCH (11:17)
--- NOTE | 2020-03-30 11:17 | NUR ---
CONSULTATION PAGED REASON FOR CONSULTATION:BIPOLAR/ DEPRESSION WAS CONSULT CALLED?Y PERSON WHO WAS NOTIFIED:ABIMAEL CONSULTING PHYSICIAN:FABY BUNDY ORACLE BUSINESS INTELLIGENCE DEVELOPER SPECIALTY:PSYCH ORACLE BUSINESS INTELLIGENCE DEVELOPER PHONE NUMBER:[phone] REQUESTING PHYSICIAN:COURT BATES
--- NOTE | 2020-03-30 11:38 | NUR ---
SON CALLED AND SPOKE TO SON VIN AND OBTAINED CONSENT FOR PICC LINE FROM HIM, CONSENT WITNESSED BY ANOTHER NURSE.
[2020-03-30 12:03] LABS: PROTHROMBIN TIME 9.6 SECS (9.5-12.5)
[2020-03-30 12:33] VITALS: BP_SYST 113
--- NOTE | 2020-03-30 15:00 | NUR ---
IV RE-INSERTION: Pt accidentally removed iv catheter on right forearm, no active bledding noted, dressing in place. Restarted on left forearm, 20 gauge. Successful after one attempt. Resumed current IVF as ordered. Will observe for any signs of infiltration. Aseptic technique used, pt tolerated.
[2020-03-30 16:03] VITALS: BP_SYST 110
--- NOTE | 2020-03-30 18:28 | NUR ---
CLOSING NOTE PT IN BED, NO S/S OF DISTRESS OR SOB NOTED, PT HAS NO C/O PAIN AT THIS TIME, PT IN STABLE CONDITION. PT AAOX1, VERBAL BUT CONFUSED, PROVIDED PT WITH REALITY ORIENTATION. IV CATHETER PATENT, NO SIGNS OF INFECTION OR INFILTRATION NOTES, RUNNING IV FLUIDS ORDERED. BED AT LOWEST POSITION, CALL LIGHT WITHIN REACH, WILL ENDORSE CARE OF PT TO INCOMING NURSE, FALL, SAFETY AND SEIZURE PRECAUTIONS IN PLACE.
--- NOTE | 2020-03-30 19:20 | NUR ---
initial notes: pt is in bed. alert, awake, oriented x 2. no pain, no sob, stable. iv banana bag infusing to left forearm gauge 20 at 42cc/hr-intact and patent. pt has sotelo catheter draining to yellow urine. bilateral leg scd. pt is soiled with bm, clean pt, change chux and linen with help of rudy roche. explain plan of care and safety. needs attended, call light in reach. bed lock on, safety precaution in place. will follow up.
[2020-03-30 19:40] VITALS: BP_SYST 122
--- NOTE | 2020-03-30 22:04 | NUR ---
pt is resting facing left side, no pain, no sob, stable, clean and dry. ivf infusing well. marc light in reach. safety precaution in place. will follow-up.
[2020-03-30 23:31] VITALS: BP_SYST 134
--- NOTE | 2020-03-31 | NUR ---
sleeping, comfortable. no pain, no sob, stable. call light in reach. safety precaution in place. will follow-up.
--- NOTE | 2020-03-31 02:08 | NUR ---
sleeping, comfortable. no pain, no sob, stable. clean and dry. call light in reach. safety precaution in place. will follow-up.
--- NOTE | 2020-03-31 04:23 | NUR ---
sleeping on her side. comfortable. no pain, no sob, stable. call light in reach. safety precaution in place. will follow-up.
--- NOTE | 2020-03-31 06:01 | NUR ---
SLEEPING, COMFORTABLE. NO PAIN. NOT DISTRESS. IVF INFUSING WELL. SAFETY PRECAUTION IN PLACE. WILL FOLLOW-UP. Addendum: 03/31/20 at 0602 by Stanislav Nayak RN PT IS SEEN BY DR. FRANKLIN. MADE ORDERS
[2020-03-31 06:50] LABS: C-REACTIVE PROTEIN QUANT 3.2 mg/dL (0-0.5); CALCIUM 7.9 mg/dL (8.4-11.0); CREATININE 0.44 mg/dL (0.55-1.30)
[2020-03-31] MEDS: D5NS 1,000 ML IV SCH (06:50)
--- NOTE | 2020-03-31 06:53 | NUR ---
closing: pt is awake, alert, confused. no sob, no pain. stable.needs attended the whole shift. reposition safety precaution in place. call light in reach. will give sbar report and rounding to am rn.
[2020-03-31 06:56] LABS: BASOPHILS % (AUTO) 0.8 % (0.0-2.0); EOSINOPHILS # (AUTO) 0.1 K/uL (0.0-0.4); EOSINOPHILS % (AUTO) 1.4 % (0.0-4.0); HEMATOCRIT 25.4 % (36-48); HEMOGLOBIN 8.5 g/dL (12.0-16.0); LYMPHOCYTES # (AUTO) 1.1 K/uL (1.0-5.5); LYMPHOCYTES % (AUTO) 18.8 % (20.5-51.5); MEAN CORPUSCULAR HEMOGLOBIN 36 pg (27-31); MEAN CORPUSCULAR HGB CONC 34 % (32-36); MEAN CORPUSCULAR VOLUME 107 fL (79.0-98.0); MONOCYTES # (AUTO) 0.9 K/uL (0.0-1.0); MONOCYTES % (AUTO) 15.8 % (1.7-9.3); NEUTROPHILS # (AUTO) 3.6 K/uL (1.8-7.7); PLATELET COUNT (AUTO) 173 K/uL (130-430); RED BLOOD CELL COUNT(AUTO) 2.36 MIL/uL (4.2-6.2); RED CELL DISTRIBUTION WIDTH 13.7 % (9.0-15.0); WHITE BLOOD COUNT (AUTO) 5.7 K/uL (4.8-10.8)
[2020-03-31 07:10] LABS: NEUTROPHILS % (AUTO) 63.2 % (40.0-70.0)
--- NOTE | 2020-03-31 07:36 | NUR ---
OPENING NOTE: Pt presents awake, alert, confused, requires re-orientation frequently, follows directions but is very forgetful. No acute pain and no acute distress noted. Respirations even and unlabored. Will continue to monitor.
[2020-03-31 08:08] VITALS: BP_SYST 109
[2020-03-31 08:51] LABS: ERYTHROCYTE SEDIMENTATION RATE 17 MM/HR (0-20)
[2020-03-31] MEDS ORDERED: LORazepam 1 MG TABLET PO SCH (09:00)
[2020-03-31] MEDS: sulfASALAZINE 500 MG TABLET (AZULFIDINE) PO SCH ×2 (09:54→21:58)
[2020-03-31] MEDS ORDERED: THIAMINE HCL 100 MG TABLET PO ONE (10:00)
[2020-03-31] MEDS: POTASSIUM CHLORIDE 20 MEQ TAB.PRT.SR PO SCH ×2 (10:18→14:00)
--- NOTE | 2020-03-31 10:42 | NUR ---
Neuro consult called: for Dr. Paredes, regarding confusion, ordered by Dr. Mccormack, spoke with
[2020-03-31 12:00] VITALS: BP_SYST 90
--- NOTE | 2020-03-31 12:08 | NUR ---
PHYSICAL THERAPY CO-SIGN The Physical Therapy Progress Notes documented by Ingredient Scaler Helper have been reviewed. Reviewed/Co-Signed by: Jean-Pierre Kelly PT Documentation Done by: LEI OSBORN PTA Addendum: 03/31/20 at 1209 by Jean-Pierre Kelly PT Amended: Links added.
[2020-03-31] MEDS: cefTRIAXone 1 GM in D5W 50 ML IV SCH (12:29)
--- NOTE | 2020-03-31 15:36 | NUR ---
DOUBLE LUMEN PICC LINE PLACED IN RIGHT UPPER ARM AND PLACEMENT VERIFIED BY X-RAY. PICC LINE OK TO USE.
[2020-03-31 16:41] VITALS: BP_SYST 113
--- NOTE | 2020-03-31 18:09 | NUR ---
CLOSING NOTES: Hourly Rounding done. No acute distress and no acute pain noted. Respirations even and unlabored. Will endorse all follow-ups to operation shift supervisor.
[2020-03-31 21:00] VITALS: BP_SYST 119
--- NOTE | 2020-03-31 22:45 | NUR ---
APPLE JUICE GIVEN PO ENCOURAGED , KEPT UP RIGHT POSITION NO ACUTE DISTRESS , PRECAUTIONS IMPLEMENTED , PATIENT TOLERATE .
[2020-03-31 23:18] VITALS: BP_SYST 128
--- NOTE | 2020-03-31 23:24 | NUR ---
HOURLY ROUNDING patient AWAKE HOB ELEVATED SAFETY MEASURES implemented ROOM CLOSE TO NSG STATION , MONITOR .
--- NOTE | 2020-04-01 02:45 | NUR ---
New PICC LINE Right upper arm no bleeding site clean dry no complaints made .
--- NOTE | 2020-04-01 02:46 | NUR ---
MILLS CATHETER Patent free flow of yellow scarlett urine noted to BSDB , SIPS OF WATER PO TOLERATED .
--- NOTE | 2020-04-01 04:32 | NUR ---
Patient awake turn off loading with pillows APPLE SAUCE PO GIVEN ENCOURAGED , HOB KEPT ELEVATED juice also given & tolerated .
--- NOTE | 2020-04-01 07:40 | NUR ---
OPENING NOTE Patient resting in the bed with eye closed. No acute distress. Skin warm and dry to touch. PICC line intact to DON, no redness, no swelling, patent, covered with clean and dry transparent dressing. SCD in placed. F/C intact, drain gravity. Safety measure maintained. Bed locked in low position, side rails up, bed alarm on. Call light within reached. Will continue to monitor.
[2020-04-01 07:55] VITALS: BP_SYST 108
--- NOTE | 2020-04-01 08:28 | NUR ---
CHANGE BLOOD SUGAR MONITOR TO Q6HR Seen and examined by Onur Palacio. Reported to Dr. Mccormack, the patient not eating this morning and no IVF. Dr. Mccormack stated "don't worry it". Reported BS in 70s-80s, monitor blood sugar Q4hr. Dr. Mccormack with order to change monitor blood sugar Q6hr. Order noted and carries out.
[2020-04-01 08:46] VITALS: BP_SYST 108
[2020-04-01] MEDS: D5NS 1,000 ML IV SCH ×2 (09:57→15:22)
[2020-04-01] MEDS: sulfASALAZINE 500 MG TABLET (AZULFIDINE) PO SCH (09:57)
[2020-04-01] MEDS: FOLIC ACID 1 MG TABLET PO SCH (09:57)
[2020-04-01] MEDS: THIAMINE HCL 100 MG TABLET PO SCH (09:57)
--- NOTE | 2020-04-01 10:14 | NUR ---
AM SCHEDULE PO MED GIVEN, TOLERATED WELL. IVF OF D5NS AT 60ML/HE HANG AND CONNECTED TO PICC LINE.
--- NOTE | 2020-04-01 11:16 | NUR ---
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 PMH: HTN, Liver Disease, ETOH abuse. 03/25 CT head/brain: no acute abnormalities; noted atherosclerotic vascular changes. Subjective Information: Pt seen in bed, awake but does not answer questions and just stares. Breakfast tray at bedside, barely touched. Pt appeared thin, w/ possible muscle and fat wasting. Pt was seen by ST 03/28 and rec Mechanical soft finely chopped diet. Per EMR, PO intake remains negligible and pt may benefit from adding ONS to meet estimated protein and energy. Pt is a/w discharge to SNF. Current Diet Order/Nutrition Support: Cardiac diet, Mech soft, finely chopped x 5 days Pertinent Medications: thiamine, folic acid, Pertinent Labs: 03/31 Na 140WNL, K 3L, BG 77WNL, BUN 3L, CRE 0.44L, COVID 03/28- Negative Height (Feet): 4 feet Height (Inches): 11.00 inches Weight (Pounds): 91 pounds Weight (Calculated Kilograms): 41.591111 kilograms Skin Integrity Comment: Kunal scale: 17, per RN notes, no PIs. Pt w/ ecchymosis to DON. Non-pitting generalized edema. Current % PO Negligible <25% Estimated Energy Expenditure (kcals/day) 5431-4868 kcla/day (30-35 kcal/kg CBW for sepsis) Estimated Protein Required (g/day) 65-86gm/day (1.5-2gm/kg IBW for sepsis) Estimated Fluid Required (l/day) 1.2-1.4 L/day (1ml/calorie for maintenance) Problem/Etiology/Signs/Symptoms Increased nutrient needs r/t metabolic demands AEB estimated calories and protein for sepsis. (*ongoing) Underweight r/t poor nutrition quality of life AEB BMI 18.4 kg/m2 and possible displacement of wholesome nutrition 2/2 ETOH abuse. (*ongoing) Inadequate protein-energy intake r/t poor appetite AEB PO intake meets <40% of estimated needs. (*new 04/01/2020) Expected Outcomes/Goals Monitor appetite and PO intake w/ goal of pt meeting at least 75% of estimated nutritional needs, labs trending WNL, normal GI function, skin integrity/wt maintenance. Dietitian Recommendations * Recommend: adding Ensure Enlive TID. ONS will provide additional 1050 kcal, 60gm protein daily. * Continue Cardiac Mechanical soft finely chopped diet per PICK UP AND DELIVERY DRIVER and MD. * Encourage pt to increase PO intake. * Consider appetite stimulant. Follow Up High Risk: F/U in 2-3days
--- NOTE | 2020-04-01 11:32 | NUR ---
Dietitian Recommendations * Recommend: adding Ensure Enlive TID. ONS will provide additional 1050 kcal, 60gm protein daily. * Continue Cardiac Mechanical soft finely chopped diet per TRUCK RAILROAD AND BUS MOTOR MECHANIC and MD. * Encourage pt to increase PO intake. * Consider appetite stimulant. Please see nutrition f/u note for details. ALINA MCGINNIS
[2020-04-01 12:15] VITALS: BP_SYST 102
[2020-04-01] MEDS: cefTRIAXone 1 GM in D5W 50 ML IV SCH (12:36)
--- NOTE | 2020-04-01 14:20 | NUR ---
ROUND Patient resting in the bed. No acute distress. IV intact, IVF infusing well. F/C intact, drain gravity. Safety measure maintained. Call light within reached. Continue to monitor.
[2020-04-01 16:10] VITALS: BP_SYST 96
--- NOTE | 2020-04-01 16:35 | NUR ---
ROUND Patient resting in the bed with eye closed. No acute distress. IV intact, IVF infusing well. F/C intact, drain gravity. Safety measure maintained. Call light within reached. Continue to monitor.
--- NOTE | 2020-04-01 17:15 | NUR ---
SEEN AND EXAMINED BY VIOLETTE LSATER.
--- NOTE | 2020-04-01 17:36 | NUR ---
JR=325 No coverage needed per sliding scale. Patient resting in the bed. No acute distress. PICC line intact, IVF infusing well. F/C intact, drain gravity. Safety measure maintained. Call light within reached. Bed locked in low position, side rails up. Continue to monitor.
--- NOTE | 2020-04-01 18:42 | NUR ---
CLOSING NOTE Patient resting in the bed with eye closed. No acute distress. Skin warm and dry to touch. PICC line intact to DON, no redness, no swelling, no drainage, covered with clean and dry transparent dressing. On D5 NS at 60ml/hr, infusing well. SCD in placed. F/C intact, drain gravity. No seizure activity noted during shift. All needs met. Safety measure maintained. Bed locked in low position, padded side rails up, bed alarm on. Call light within reached. Will endorse to night nurse.
--- NOTE | 2020-04-01 19:15 | NUR ---
OPENING NOTE: Patient is awake at this time, AOx1. No s/s acute distress noted. Breathing is even and unlabored. RU PICC line patent without signs of infiltration or infection. Dressing is clean, dry, and intact. Last dressing change done on 03/30/20. IVF infusing well. No signs infection or infiltration. Sparks is attached, patent, and draining by gravity. SCDs are attached and operating. Seizure pads are in place. Bed is locked in lowest position, bed alarm on, call light with patient. Patient educated on importance and use of call light. Patient did not verbalize understanding or demonstrate proper use due to confusion. Will continue to re-educate and re-orient throughout the shift. Will continue to monitor.
[2020-04-01 20:00] VITALS: BP_SYST 95
--- NOTE | 2020-04-01 21:25 | NUR ---
SPOKE WITH PATIENT'S SON: Spoke with patient's son at this time. No concerns expressed. All questions answered. Patient attempted to talk to him but only responded to him twice and then did not want to talk anymore.
--- NOTE | 2020-04-01 23:35 | NUR ---
ROUNDS: Patient is resting at this time. No s/s of acute distress noted. Breathing is even and unlabored. Bed locked in lowest position, bed alarm on, call light with patient. Will continue to monitor.
[2020-04-02 00:04] VITALS: BP_SYST 105
[2020-04-02] MEDS: D5NS 1,000 ML IV SCH ×2 (01:42→22:26)
--- NOTE | 2020-04-02 05:15 | NUR ---
SEVERINO CARE: Severino care performed at this time with LANDSCAPE ACCOUNT MANAGER. Patient tolerated well. No s/s of acute distress noted. Breathing is even and unlabored. All needs met at this time. Bed locked in lowest position, bed alarm on, call light with patient. Will continue to monitor.
--- NOTE | 2020-04-02 06:30 | NUR ---
CLOSING NOTE: Patient is resting at this time, AOx1. No s/s acute distress noted. Breathing is even and unlabored. RU PICC line patent without signs of infiltration or infection. Dressing is clean, dry, and intact. Last dressing change done on 03/30/20. IVF infusing well. No signs infection or infiltration. Sparks is attached, patent, and draining by gravity. SCDs are attached and operating. Seizure pads are in place. All fall/safety precautions maintained throughout the shift. All needs met throughout the shift. Will continue to monitor until endorsement of care to dayshift nurse.
--- NOTE | 2020-04-02 07:22 | NUR ---
OPENING NOTE Patient resting in the bed. No acute distress. Skin warm and dry to touch. PICC line intact to DON, no redness, no swelling, patent, covered with clean and dry transparent dressing. ON D5 NS at 60ml/hr, infusing well. SCD in placed. F/C intact, drain gravity. Safety measure maintained. Bed locked in low position, side rails up, bed alarm on. Call light within reached. Will continue to monitor.
--- NOTE | 2020-04-02 08:30 | NUR ---
SEEN AND EXAMINED BY JP FUNK.
[2020-04-02] MEDS: CIPROFLOXACIN HCL 500 MG TABLET PO SCH ×2 (10:14→21:42)
[2020-04-02] MEDS: THIAMINE HCL 100 MG TABLET PO SCH (10:14)
[2020-04-02] MEDS: FOLIC ACID 1 MG TABLET PO SCH (10:14)
--- NOTE | 2020-04-02 10:25 | NUR ---
ROUND Patient resting in the bed with eye closed. No acute distress. IV intact, IVF infusing well. F/C intact, drain gravity. Safety measure maintained. Bed locked in low position, side rails up, bed alarm on. Call light within reached. Continue to monitor.
[2020-04-02 12:14] VITALS: BP_SYST 109
--- NOTE | 2020-04-02 14:28 | NUR ---
ROUND Patient resting in the bed with eye closed. No acute distress. IV intact, IVF infusing well. F/C intact, drain gravity. Safety measure maintained. Call light within reached. Bed locked in low position, side rails up, bed alarm on. Continue to monitor.
[2020-04-02 16:38] VITALS: BP_SYST 112
--- NOTE | 2020-04-02 16:45 | NUR ---
ROUND Patient resting in the bed. No acute distress. IV intact, IVF infusing well. F/C intact, drain gravity. Safety measure maintained. Call light within reached. Bed locked in low position, side rails up, bed alarm on. Continue to monitor.
--- NOTE | 2020-04-02 18:52 | NUR ---
CLOSING NOTE Patient resting in the bed. No acute distress. Skin warm and dry to touch. PICC line intact to DON, no redness, no swelling, no drainage, covered with clean and dry transparent dressing. On D5 NS at 60ml/hr, infusing well. SCD in placed. F/C intact, drain gravity. No seizure activity noted during shift. All needs met. Safety measure maintained. Bed locked in low position, padded side rails up, bed alarm on. Call light within reached. Will endorse to night nurse.
[2020-04-02 20:00] VITALS: BP_SYST 100
--- NOTE | 2020-04-02 21:45 | NUR ---
MED PASS: Patient received her night meds. Meds were crushed and added to apple sauce. Patient was slow to swallow, but did not have difficulty swallowing or any coughing. Patient tolerated well. No other needs at this time. Will continue to monitor. Bed locked in lowest position, bed alarm on, call light with patient. Will continue to monitor.
--- NOTE | 2020-04-02 23:08 | NUR ---
SPOKE WITH PATIENT'S SON: Spoke with patient's son at this time. No concerns expressed. All questions answered.
[2020-04-03 00:57] VITALS: BP_SYST 95
--- NOTE | 2020-04-03 03:45 | NUR ---
SEVERINO CARE: Severino care performed at this time with DISEASE MANAGEMENT NURSE. Patient tolerated well. No s/s of acute distress noted. Breathing is even and unlabored. All needs met at this time. Bed locked in lowest position, bed alarm on, call light with patient. Will continue to monitor.
--- NOTE | 2020-04-03 05:44 | NUR ---
ROUNDS WITH DOCTOR SUAREZ: Rounds with Doctor Suarez at this time. All questions answered. No new orders given at this time.
--- NOTE | 2020-04-03 07:20 | NUR ---
Am Rounds: Patient sleeping during rounds. No acute distress. Call light with in reach. Bed locked at lowest position. No needs this time.
--- NOTE | 2020-04-03 07:30 | NUR ---
Covid Pcr test: Sample of Covid pcr test sent to lab.
[2020-04-03 08:10] VITALS: BP_SYST 93
[2020-04-03] MEDS: THIAMINE HCL 100 MG TABLET PO SCH (09:29)
[2020-04-03] MEDS: CIPROFLOXACIN HCL 500 MG TABLET PO SCH (09:29)
[2020-04-03] MEDS: FOLIC ACID 1 MG TABLET PO SCH (09:29)
--- NOTE | 2020-04-03 11:16 | NUR ---
BLOOD SUGAR: BLOOD SUGAR OF 103MG/DL,NO INSULIN COVERAGE.
[2020-04-03 12:00] VITALS: BP_SYST 98
--- NOTE | 2020-04-03 14:30 | NUR ---
RN ROUNDS: PATIENT SLEEPING DURING ROUNDS. NOT IN ANY DISTRESS.
[2020-04-03] MEDS: D5NS 1,000 ML IV SCH (14:39)
--- NOTE | 2020-04-03 16:27 | NUR ---
RN ROUNDS: NO PROBLEM . NO ACUTE DISTRESS.
[2020-04-03 16:36] VITALS: BP_SYST 90
--- NOTE | 2020-04-03 16:49 | NUR ---
CASE MANAGEMENT NOTES FOLLOW UP SNF PLACEMENT, SPOKE TO DAVIAN, STILL NO BED AVAILABLE, WAITING FOR ACCEPTING FACILITY.
--- NOTE | 2020-04-03 17:10 | NUR ---
BLOOD SUGAR: BLOOD SUGAR=90MG/DL,NO INSULIN COVERAGE .
--- NOTE | 2020-04-03 18:35 | NUR ---
CLOSING NOTES: GRAPHIC DESIGN PROFESSOR ASSISTING PATIENT DURING DINNER. FEEDER. IVF RUNNING WELL AT RIGHT UPPER ARM ,CLEAN AND DRY. BED LOCKED AT LOWEST POSITION. BED ALARM ON. NO ACUTE DISTRESS.
--- NOTE | 2020-04-03 19:15 | NUR ---
CHANGE OF SHIFT; pt. awake, alert on high fowlers position. no acute distress. knows her name, disoriented. no complaints noted. IVF patent will assess later. on fall risk precautions. call light at bedside.pt. room close to nurses station.
[2020-04-03 20:00] VITALS: BP_SYST 94
--- NOTE | 2020-04-03 20:00 | NUR ---
NOTES: pt. awake, wants her tv off. knows her name and birthday , reoriented to place, follows simple commands. IV infusing via PICC line on rt. upper arm, noted big skin bruising and multiple small spots on left arm. able to move extremities. sotelo cath to OSD. denies any pain nor discomfort. sequential on both legs. will check frequently.
--- NOTE | 2020-04-03 22:00 | NUR ---
NOTES: pt. awakened and repositioned, turn to sides. appears calm. fall risk precaution observed.
[2020-04-04 00:12] VITALS: BP_SYST 98
--- NOTE | 2020-04-04 00:15 | NUR ---
NOTES: BS checked 101, no sliding scale coverage. repositioned, turn to sides. IVF patent. kept warm with blanket.
--- NOTE | 2020-04-04 02:15 | NUR ---
NOTES: pt. incontinent of stool, kept clean and dry. repositioned.
--- NOTE | 2020-04-04 04:00 | NUR ---
NOTES: condition unchanged. pt. sleeping quietly.
--- NOTE | 2020-04-04 05:45 | NUR ---
NOTES: awakened and repositioned. checked for incontinence. IVF intact.
[2020-04-04] MEDS: D5NS 1,000 ML IV SCH (05:49)
--- NOTE | 2020-04-04 06:54 | NUR ---
CLOSING NOTES; BS checked 84. no sliding scale. IVF infusing at same rate via PICC line. sotelo intact. for further care and assistance. will endorse to day shift. on fall and seizure precautions. no distress.
[2020-04-04 08:00] VITALS: BP_SYST 92
--- NOTE | 2020-04-04 08:00 | NUR ---
Initial notes- In bed, sleepy at this time but responsive. IVF infusing well. turn and repositioned. pt is confused, denies any pain or shortness of breath. bed alarm on. will monitor.
[2020-04-04] MEDS: FOLIC ACID 1 MG TABLET PO SCH (09:06)
[2020-04-04] MEDS: THIAMINE HCL 100 MG TABLET PO SCH (09:06)
--- NOTE | 2020-04-04 09:30 | NUR ---
md rounds seen by dr. franz at bedside. ekg was done. md aware of results.
[2020-04-04 09:32] LABS: BASOPHILS % (AUTO) 0.2 % (0.0-2.0); EOSINOPHILS # (AUTO) 0.1 K/uL (0.0-0.4); EOSINOPHILS % (AUTO) 1.3 % (0.0-4.0); HEMATOCRIT 25.9 % (36-48); HEMOGLOBIN 8.7 g/dL (12.0-16.0); LYMPHOCYTES # (AUTO) 1.2 K/uL (1.0-5.5); LYMPHOCYTES % (AUTO) 21.6 % (20.5-51.5); MEAN CORPUSCULAR HEMOGLOBIN 36 pg (27-31); MEAN CORPUSCULAR HGB CONC 34 % (32-36); MEAN CORPUSCULAR VOLUME 107 fL (79.0-98.0); MONOCYTES % (AUTO) 17.2 % (1.7-9.3); NEUTROPHILS # (AUTO) 3.4 K/uL (1.8-7.7); NEUTROPHILS % (AUTO) 59.7 % (40.0-70.0); PLATELET COUNT (AUTO) 120 K/uL (130-430); RED BLOOD CELL COUNT(AUTO) 2.42 MIL/uL (4.2-6.2); RED CELL DISTRIBUTION WIDTH 14.2 % (9.0-15.0); WHITE BLOOD COUNT (AUTO) 5.7 K/uL (4.8-10.8)
[2020-04-04 09:52] LABS: ALANINE AMINOTRANSFERASE 35 U/L (12-78); ALBUMIN 1.7 g/dL (3.4-4.8); ASPARTATE AMINOTRANSFERASE 32 U/L (10-37); CALCIUM 7.5 mg/dL (8.4-11.0); CHLORIDE 113 mmol/L (98-107); CREATININE 0.46 mg/dL (0.55-1.30); GLUCOSE 89 mg/dL (70-99); SODIUM SERUM 140 mmol/L (136-145); TOTAL BILIRUBIN 0.2 mg/dL (0.0-1.0); UREA NITROGEN, BLOOD 5 mg/dL (8-21)
[2020-04-04 09:58] LABS: POTASSIUM 2.9 mmol/L (3.5-5.1)
[2020-04-04 09:59] LABS: GFR AFRICAN AMERICAN 173 mL/min (>90)
[2020-04-04 10:00] LABS: ANION GAP < 3 (5-15)
[2020-04-04] MEDS ORDERED: POTASSIUM CHLORIDE 20 MEQ TAB.PRT.SR PO ONE ×2 (10:15→15:00)
--- NOTE | 2020-04-04 11:04 | NUR ---
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 PMH: HTN, Liver Disease, ETOH abuse. 03/25 CT head/brain: no acute abnormalities; noted atherosclerotic vascular changes. Subjective Information: RD tried to reach RN via phone x 2 this morning -- no response. Per EMR, pt has average PO intake of 28% last 3 days -- poor but trending up. Pt was fed 75% dinner yesterday by DIGITAL CONTENT COORDINATOR per RN note and intake record. Unable to verify if pt drinks Ensure at meals. Last BM x 1 on 04/03 noted. Per RN note, pt is confused but denies any pain or SOB. Per MD note, pt is a/w discharge to SNF. Pt is not yet meeting estimated nutritional needs. Continue encourage pt to increase PO intake. Consider appetite stimulant if poor PO intake persists. Pt's potassium levels at 2.9 L, recommend replace when applicable. Current Diet Order/Nutrition Support: Cardiac diet, Mech soft, finely chopped x 8 days; w/ Ensure TID Pertinent Medications: thiamine, folic acid, Pertinent Labs: 04/04 140 WNL, K 2.9 L, BG 89 WNL, BUN 5 L (trending up), Cre 0.46 L (trending up); COVID Negative 03/28, 04/03 Height (Feet): 4 feet Height (Inches): 11.00 inches Weight (Pounds): 91 pounds Weight (Calculated Kilograms): 41.978093 kilograms -- no new wt changes since 03/26 Skin Integrity Comment: Kunal scale: 15, per RN notes, no PIs. Pt w/ ecchymosis to DON. Non-pitting generalized edema. Current % PO 28% x last 3 days -- Poor Estimated Energy Expenditure (kcals/day) 5228-0172 kcla/day (30-35 kcal/kg CBW for sepsis) Estimated Protein Required (g/day) 65-86gm/day (1.5-2gm/kg IBW for sepsis) Estimated Fluid Required (l/day) 1.2-1.4 L/day (1ml/calorie for maintenance) Problem/Etiology/Signs/Symptoms Increased nutrient needs r/t metabolic demands AEB estimated calories and protein for sepsis. (*ongoing) Underweight r/t poor nutrition quality of life AEB BMI 18.4 kg/m2 and possible displacement of wholesome nutrition 2/2 ETOH abuse. (*ongoing) Inadequate protein-energy intake r/t poor appetite AEB PO intake meets <40% of estimated needs. (*ongoing) Expected Outcomes/Goals Monitor appetite and PO intake w/ goal of pt meeting at least 75% of estimated nutritional needs, labs trending WNL, normal GI function, skin integrity/wt maintenance. Dietitian Recommendations * Recommend continue Ensure Enlive TID. ONS will provide additional 1050 kcal, 60gm protein daily. * Continue Cardiac Mechanical soft finely chopped diet per EMERGENCY TECHNICIAN and MD. * Encourage pt to increase PO intake. * Consider appetite stimulant if poor PO intake persists. * Replace potassium when applicable. Follow Up High Risk: F/U in 2-3days
--- NOTE | 2020-04-04 11:18 | NUR ---
Dietitian Recommendations * Recommend continue Ensure Enlive TID. ONS will provide additional 1050 kcal, 60gm protein daily. * Continue Cardiac Mechanical soft finely chopped diet per ULTRASONOGRAPHER and MD. * Encourage pt to increase PO intake. * Consider appetite stimulant if poor PO intake persists. * Replace potassium when applicable. Please see Nutrition F/U for details. EP,RD
--- NOTE | 2020-04-04 12:30 | NUR ---
Notes- In bed, awake, feeder. pt does not eat that much. pt is on IVF. No acute distress noted.
[2020-04-04 12:35] VITALS: BP_SYST 102
--- NOTE | 2020-04-04 13:42 | NUR ---
Notes- Trying to reach patient's son Kelvin to let him know that patient has transfer order to SNF. Unable to reach family at this time.
[2020-04-04 13:45] VITALS: BP_SYST 103
--- NOTE | 2020-04-04 14:22 | NUR ---
CONFIRMED A WILL CALL [employer] [facility] WITH [facility] FOR [id number] GOING TO [facility], RM [address] A. SPOKE TO PAOLA,
--- NOTE | 2020-04-04 14:45 | NUR ---
TRansfer- spoke to Patient's son Kelvin and agreeable for transfer.
--- NOTE | 2020-04-04 16:33 | NUR ---
REPORT GIVEN TO MILY [facility].
[2020-04-04 16:45] VITALS: BP_SYST 100
--- NOTE | 2020-04-04 17:34 | NUR ---
DISCHARGE D/C PT TO [facility]. DENIES ANY PAIN OR SHORTNESS OF BREATH. ON ROOM AIR TOLERATED WELL. HAS MILLS CATHETER AND RIGHT UPPER ARM PICC LINE. ALL BELONGINGS SENT. NO ACUTE DISTRESS NOTED.
== END 2020-04-04 17:30 | DRG 871 ==
LOC: SED 13:44 → STU 17:43 → SMU 03-27 16:11
PROVIDERS: ADMIT Internal Medicine Hospice and Palliative Medicine; ATTEND Internal Medicine Hospice and Palliative Medicine
PROC: 02HV33Z Insertion of Infusion Device into Superior Vena Cava, Percutaneous Approach (ICD-10-PCS; principal; 2020-03-31)
PROC: B548ZZA Ultrasonography of Superior Vena Cava, Guidance (ICD-10-PCS; 2020-03-31)
DX: A41.9 Sepsis, unspecified organism (principal); E43 Unspecified severe protein-calorie malnutrition; Z68.1 Body mass index [BMI] 19.9 or less, adult; G93.40 Encephalopathy, unspecified; N39.0 Urinary tract infection, site not specified; F31.30 Bipolar disorder, current episode depressed, mild or moderate severity, unspecified; D75.89 Other specified diseases of blood and blood-forming organs; D72.819 Decreased white blood cell count, unspecified; F10.20 Alcohol dependence, uncomplicated; E87.8 Other disorders of electrolyte and fluid balance, not elsewhere classified; K70.9 Alcoholic liver disease, unspecified; B96.89 Other specified bacterial agents as the cause of diseases classified elsewhere; Z20.828 Contact with and (suspected) exposure to other viral communicable diseases; B96.5 Pseudomonas (aeruginosa) (mallei) (pseudomallei) as the cause of diseases classified elsewhere; R55 Syncope and collapse; E87.6 Hypokalemia; I10 Essential (primary) hypertension; K74.60 Unspecified cirrhosis of liver; Z88.8 Allergy status to other drugs, medicaments and biological substances; Z79.899 Other long term (current) drug therapy
CPT/HCPCS: 36415; 70450-TC; 70551; 71045; 73030; 80048; 80053; 80307; 81000-TC; 82140-TC; 82550-TC; 82553-TC; 82962; 83605; 83690-TC; 83735-TC; 84484; 85007; 85025; 85027; 85610-TC; 85651-TC; 85730-TC; 86140; 87040-TC; 87086; 87186-TC; 92610-GN; 93005; 93306; 95816; 96365; 96366; 96368; 97110-GP; 97112-GP; 97116-GP; 97530-GP; 99285; C1751; G0378; G0480; G0481; G0482; J0696; J2543; J3370; J3411; J3475; J3480; J3490; J7030; J7042; J7050; J7060